=== PATIENT | female | born 1975 ===

== ENCOUNTER 2017-08-11 23:26 | Emergency (ER) | payer MEDICARE, MEDICAID ==
[~2017-08-11] VITALS: Ht 162.6 cm; Wt 95.7 kg
[2017-08-11] MEDS ORDERED: KEPPRA500 M4 ORAL (23:44)
[2017-08-11] MEDS ORDERED: LORAZEPAM1 MG ORAL (23:44)
[2017-08-11] MEDS ORDERED: LYRICA75 M1 ORAL (23:44)
[2017-08-11] MEDS ORDERED: DILAUDID1 MG/1 ML PO (23:44)
[2017-08-11] MEDS ORDERED: TRAMADOL HCL50 MG ORAL (23:44)
[2017-08-11] MEDS ORDERED: NITROGLYCERIN0.4 MG SL (23:44)
[2017-08-11] MEDS ORDERED: IBUPROFEN600 MG ORAL (23:44)
[2017-08-11] MEDS ORDERED: METHADONE HCL10 MG PO (23:44)
[2017-08-11] MEDS ORDERED: LACTULOSE10 GM/153 PO (23:44)
[2017-08-11] MEDS ORDERED: ZOLPIDEM TARTRA10 MG ORAL (23:44)
[2017-08-12 00:08] LABS: BASOPHILS % (AUTO) 1.3 % (0.0-2.0); LYMPHOCYTES % (AUTO) 38.5 % (20.0-45.0); MEAN CORPUSCULAR HEMOGLOBIN 30.7 PG (27.0-31.0); MEAN CORPUSCULAR HGB CONC 32.4 G/DL (32.0-36.0); MEAN CORPUSCULAR VOLUME 95 FL (80-99); MEAN PLATELET VOLUME 6.3 FL (6.5-10.1); NEUTROPHILS % (AUTO) 48.2 % (45.0-75.0); PLATELET COUNT 299 K/UL (150-450); RED BLOOD COUNT 3.34 M/UL (4.20-5.40); RED CELL DISTRIBUTION WIDTH 15.9 % (11.6-14.8); WHITE BLOOD COUNT 4.1 K/UL (4.8-10.8)
[2017-08-12 00:24] LABS: TROPONIN I < 0.30 ng/mL (<=0.30)
[2017-08-12 00:27] LABS: ACETAMINOPHEN < 10 ug/mL (10-30); ALANINE AMINOTRANSFERASE 7 U/L (3-33); ALBUMIN/GLOBULIN RATIO 1.6 (1.0-2.7); ALCOHOL < 10 mg/dL; ANION GAP 13 (5-15); ASPARTATE AMINO TRANSFERASE 12 U/L (5-40); CALCIUM 8.4 mg/dL (8.6-10.2); CARBON DIOXIDE 25 mEQ/L (20-30); CHLORIDE 98 mEQ/L (98-107); CREATININE 0.7 mg/dL (0.5-0.9); GLOMERULAR FILTRATION RATE > 60 mL/min (>60); HEMOLYSIS 0; POTASSIUM 4.1 mEQ/L (3.4-4.9); SODIUM 136 mEQ/L (135-145); TOTAL PROTEIN 6.1 g/dL (6.6-8.7)
[2017-08-12 00:42] LABS: APPEARANCE,URINE CLEAR; KETONES,URINE 1+ (NEGATIVE); LEUKOCYTE ESTERASE ,URINE 1+ (NEGATIVE); NITRITE,URINE NEGATIVE (NEGATIVE); PH,URINE 6 (4.5-8.0); PROTEIN,URINE 1+ (NEGATIVE); UROBILINOGEN,URINE NORMAL MG/DL (0.0-1.0)
[2017-08-12 01:02] VITALS: BP 102/60
[2017-08-12 01:36] LABS: BACTERIA,URINE OCCASIONAL /HPF; RBC,URINE 0-2 /HPF (0 - 2); SQUAMOUS EPITHELIAL CELL,UR MODERATE /LPF (NONE/OCC)
--- NOTE | 2017-08-12 02:12 | Emergency Room Report ---
History of Present Illness General Chief Complaint: Overdose Source: Patient Present Illness HPI Patient presents with altered mentation. She took an excessive amount of her pain medication tonight. Her pain has been poorly controlled. She had back surgeries in April and May. She also had an infection. She denies having fevers at this time. She's not change in her neurologic exam (back) however the pain is persistent. She does see a chronic pain specialist. She's not suicidal or homicidal. No head trauma or pain. Recent back surgeries (April and May). Complicated with apparent infection. No rash or change in pain. No increased LE weakness or numbness. No chest pain, palpitations, cough, dyspnea, fevers, dysuria. Denies DM. Not on blood thinners,. No oncologic problem. Allergies: Coded Allergies: MORPHINE (Unverified Allergy, Unknown, 08/11/17) Patient History Past Medical History: see triage record Past Surgical History: other Social History: Reports: drug use - opiates, Denies: alcohol use Social History Narrative Reviewed Nursing Documentation: PMH: Agreed, PSxH: Agreed Nursing Documentation-PMH Past Medical History: No History, Except For Review of Systems All Other Systems: negative except mentioned in HPI Physical Exam Vital Signs Date Time Temp Pulse Resp B/P (MAP) Pulse Ox O2 Delivery O2 Flow Rate FiO2 08/11/17 23:19 98.2 109 16 115/67 100 Room Air Sp02 EP Interpretation: reviewed, normal General Appearance: no apparent distress, lethargic - but easily roused Eyes: bilateral eye PERRL - pupils small, bilateral eye Scleral Injection ENT: moist mucus membranes, other - gag Neck: full range of motion, supple, no bony tend Respiratory: chest non-tender, lungs clear, normal breath sounds Cardiovascular #1: regular rate, rhythm, no edema Cardiovascular #2: 2+ radial (R) Gastrointestinal: non tender, soft, no mass, abnormal bowel sounds - decreased Musculoskeletal: other - lumbar muscle spasms, ROM good, no point tenderness Neurologic: oriented x3, motor strength/tone normal, DTRs symmetric, sensory intact, other - slurred speech Psychiatric: depressed affect Skin: other - sallo, no back erythema - prior scars Medical Decision Making Diagnostic Impression: Primary Impression: Opiate overdose Qualified Codes: T40.601A - Poisoning by unspecified narcotics, accidental ( unintentional), initial encounter Additional Impression: Chronic back pain Qualified Codes: M54.5 - Low back pain; G89.29 - Other chronic pain ER Course Patient with OD of pain medicines. At this point, maintaining airway. As took recently, concern over increased somnolence. Also concern over possible aspiration and non-cardiogenic pulmonary edema. Also need to exclude tylenol excess and other possible toxic ingestion. Evaluation with labs, EKG, CXR. Will need cardiac monitoring. Labs with + opiates. CXR clear. EKG normal. Continued hydration and observation. Discussed with patient and . Again states was accidental. Patient ambulatory without difficulty and denies SI or HI. Discussion of controlling meds in future and need to see her chronic pain MD. Laboratory Tests Test 08/11/17 23:40 08/12/17 00:10 White Blood Count 4.1 K/UL (4.8-10.8) L Red Blood Count 3.34 M/UL (4.20-5.40) L Hemoglobin 10.3 G/DL (12.0-16.0) L Hematocrit 31.7 % (37.0-47.0) L Mean Corpuscular Volume 95 FL (80-99) Mean Corpuscular Hemoglobin 30.7 PG (27.0-31.0) Mean Corpuscular Hemoglobin Concent 32.4 G/DL (32.0-36.0) Red Cell Distribution Width 15.9 % (11.6-14.8) H Platelet Count 299 K/UL (150-450) Mean Platelet Volume 6.3 FL (6.5-10.1) L Neutrophils (%) (Auto) 48.2 % (45.0-75.0) Lymphocytes (%) (Auto) 38.5 % (20.0-45.0) Monocytes (%) (Auto) 10.0 % (1.0-10.0) Eosinophils (%) (Auto) 2.0 % (0.0-3.0) Basophils (%) (Auto) 1.3 % (0.0-2.0) Sodium Level 136 mEQ/L (135-145) Potassium Level 4.1 mEQ/L (3.4-4.9) Chloride Level 98 mEQ/L (98-107) Carbon Dioxide Level 25 mEQ/L (20-30) Anion Gap 13 (5-15) Blood Urea Nitrogen 9 mg/dL (7-23) Creatinine 0.7 mg/dL (0.5-0.9) Estimate Glomerular Filtration Rate > 60 mL/min (>60) Glucose Level 81 mg/dL (74-106) Calcium Level 8.4 mg/dL (8.6-10.2) L Total Bilirubin < 0.2 mg/dL (0.0-1.2) Aspartate Amino Transferase (AST) 12 U/L (5-40) Alanine Aminotransferase (ALT) 7 U/L (3-33) Alkaline Phosphatase 66 U/L (35-104) Total Creatine Kinase 100 U/L (26-140) Troponin I < 0.30 ng/mL (<=0.30) Total Protein 6.1 g/dL (6.6-8.7) L Albumin 3.8 g/dL (3.5-5.2) Globulin 2.3 g/dL Albumin/Globulin Ratio 1.6 (1.0-2.7) Salicylates Level < 1 mg/dL (10-30) L Acetaminophen Level < 10 ug/mL (10-30) L Serum Alcohol < 10 mg/dL Urine Color Yellow Urine Appearance Clear Urine pH 6 (4.5-8.0) Urine Specific [place] 1.020 (1.005-1.035) Urine Protein 1+ (NEGATIVE) H Urine Glucose (UA) Negative (NEGATIVE) Urine Ketones 1+ (NEGATIVE) H Urine Occult Blood Negative (NEGATIVE) Urine Nitrite Negative (NEGATIVE) Urine Bilirubin Negative (NEGATIVE) Urine Urobilinogen Normal MG/DL (0.0-1.0) Urine Leukocyte Esterase 1+ (NEGATIVE) H Urine RBC 0-2 /HPF (0 - 2) Urine WBC 2-4 /HPF (0 - 2) Urine Squamous Epithelial Cells Moderate /LPF (NONE/OCC) H Urine Bacteria Occasional /HPF (NONE) Urine HCG, Qualitative Negative Urine Opiates Screen Positive (NEGATIVE) H Urine Barbiturates Screen Negative (NEGATIVE) Phencyclidine (PCP) Screen Negative (NEGATIVE) Urine Amphetamines Screen Negative (NEGATIVE) Urine Benzodiazepines Screen Negative (NEGATIVE) Urine Cocaine Screen Negative (NEGATIVE) Urine Marijuana (THC) Screen Negative (NEGATIVE) EKG Diagnostic Results Rate: tachycardiac Rhythm: NSR ST Segments: no acute changes Rhythm Strip Diag. Results EP Interpretation: yes Rhythm: no PVC's, no ectopy, other - ST Chest X-Ray Diagnostic Results Chest X-Ray Diagnostic Results : Chest X-Ray Ordered: Yes # of Views/Limited/Complete: 1 View Indication: Other Interpretation: no consolidation, no effusion, no pneumothorax, no acute cardiopulmonary disease Impression: No acute disease Electronically Signed by: Electronically signed by Medardo Kaufman MD Last Vital Signs Date Time Temp Pulse Resp B/P (MAP) Pulse Ox O2 Delivery O2 Flow Rate FiO2 08/12/17 02:23 98.2 82 12 102/60 99 Room Air Status: improved Disposition: HOME, SELF-CARE Condition: Improved Medardo Kaufman M.D. Aug 12, 2017 02:12
--- NOTE | 2017-08-12 16:01 | Diagnostic Imaging Report ---
: Indication: , Technique: One view of the chest Comparison: none Findings: Lungs and pleural spaces are clear. Heart size is normal Impression: No acute process This agrees with the preliminary interpretation provided by the emergency room physician
== END 2017-08-12 | disposition home or self-care (01) ==
LOC: EDBD 23:26 → EMR 08-12 02:25
DX: T40.601A Poisoning by unspecified narcotics, accidental (unintentional), initial encounter (principal); R41.82 Altered mental status, unspecified; Y92.89 Other specified places as the place of occurrence of the external cause; G89.29 Other chronic pain; M54.9 Dorsalgia, unspecified; Z88.6 Allergy status to analgesic agent
CPT/HCPCS: 36415; 71010; 80053; 80300; 81003; 81025; 82550; 84484; 85025; 93005; 99284; G0480; 80329

== ENCOUNTER 2018-08-28 11:21 | Outpatient (CLI) | payer MEDICARE, MEDICAID ==
[~2018-08-28 11:21] MED LIST: DILAUDID1 MG/1 ML PO; IBUPROFEN600 MG ORAL; KEPPRA500 M4 ORAL; LACTULOSE10 GM/153 PO; LORAZEPAM1 MG ORAL; LYRICA75 M1 ORAL; METHADONE HCL10 MG PO; NITROGLYCERIN0.4 MG SL; TRAMADOL HCL50 MG ORAL; ZOLPIDEM TARTRA10 MG ORAL
[2018-08-28 11:52] LABS: APPEARANCE,URINE CLEAR; BILIRUBIN, URINE NEGATIVE (NEGATIVE); COLOR,URINE PALE YELLOW; GLUCOSE, URINE (UA) NEGATIVE (NEGATIVE); KETONES,URINE NEGATIVE (NEGATIVE); LEUKOCYTE ESTERASE ,URINE NEGATIVE (NEGATIVE); NITRITE,URINE NEGATIVE (NEGATIVE); PH,URINE 6.5 (4.5-8.0); PROTEIN,URINE NEGATIVE (NEGATIVE); UROBILINOGEN,URINE NORMAL MG/DL (0.0-1.0)
[2018-08-28 12:06] LABS: EOSINOPHILS % (AUTO) 2.8 % (0.0-3.0); HEMATOCRIT 36.3 % (37.0-47.0); HEMOGLOBIN 11.5 G/DL (12.0-16.0); LYMPHOCYTES % (AUTO) 43.1 % (20.0-45.0); MEAN CORPUSCULAR VOLUME 85 FL (80-99); MONOCYTES % (AUTO) 6.2 % (1.0-10.0); NEUTROPHILS % (AUTO) 46.9 % (45.0-75.0); PLATELET COUNT 357 K/UL (150-450); RED BLOOD COUNT 4.28 M/UL (4.20-5.40); RED CELL DISTRIBUTION WIDTH 18.3 % (11.6-14.8); WHITE BLOOD COUNT 4.8 K/UL (4.8-10.8)
[2018-08-28 12:18] LABS: ALANINE AMINOTRANSFERASE 29 U/L (12-78); ALBUMIN 3.6 G/DL (3.4-5.0); ALKALINE PHOSPHATASE 104 U/L (46-116); ANION GAP 6 mmol/L (5-15); ASPARTATE AMINO TRANSFERASE 19 U/L (15-37); BILIRUBIN,TOTAL 0.3 MG/DL (0.2-1.0); BLOOD UREA NITROGEN 15 mg/dL (7-18); CALCIUM 8.8 MG/DL (8.5-10.1); CARBON DIOXIDE 29 MMOL/L (21-32); CHLORIDE 101 MMOL/L (98-107); CHOLESTEROL 226 MG/DL (< 200); CREATININE 0.7 MG/DL (0.55-1.30); HDL CHOLESTEROL 62 MG/DL (40-60); POTASSIUM 4.4 MMOL/L (3.5-5.1); SODIUM 136 MMOL/L (136-145); TRIGLYCERIDES 107 MG/DL (30-150)
== END 2018-08-28 13:21 | disposition home or self-care (01) ==
LOC: LAB 11:21
DX: R11.0 Nausea (principal); M79.7 Fibromyalgia
CPT/HCPCS: 36415; 80053; 80061; 81001; 82306; 83036; 85025